=== PATIENT | male | born 1960 | race Caucasian/White ===

== ENCOUNTER → 2024-10-09 | Outpatient (CLI) | payer MEDICAID, SELFPAY ==
--- NOTE | 2024-10-09 11:00 | XR_ITS ---
Examination: CT chest with intravenous contrast CT abdomen with intravenous contrast CT pelvis with intravenous contrast 2-D coronal and sagittal reconstructions Time of exam: October 09, 2024 1057 hours Comparison May 23, 2024 INDICATIONS: Diagnosis bladder cancer one year ago, nonhealing surgical site drainage, neobladder surgery February 2024 CTDI: vol (mGy) : 20.9 DLP: (mGycm): 942 Technique: Multiple axial images of the chest, abdomen and pelvis with intravenous contrast, 3.0 mm slice thickness. Images obtained post intravenous injection Isovue 370 60 cc. 2-D sagittal and coronal reconstructions. Low dose protocols were performed. One or more of the following dose reduction techniques were used; automated exposure control, adjustment of the mA and/or KV according to patient size, use of iterative reconstruction technique. Findings: Localized calcified mild aneurysmal dilatation thoracic aorta distal descending arch region, axial image 90, sagittal image 109, transverse dimension 31 mm No dissection noted No mediastinal lymphadenopathy No pneumonia or pulmonary edema 4 mm soft pulmonary nodule right lower lobe image 345 Stable 13 mm anterior right lobe liver lesion Spleen not enlarged No extra hepatic biliary tract dilatation Pneumobilia No pancreatic or adrenal mass 3 mm left lateral periaortic lymph node No hydronephrosis Abdominal aorta normal size Postsurgical change in the anterior pelvic wall Neobladder with mildly irregular margins No pelvic abscess No anterior abdominal wall or pelvic wall abscess Prominent osteopenia with transpedicular lumbar fusion L3-L5 IMPRESSION: Localized calcified mild aneurysmal dilatation thoracic aorta 31 mm No mediastinal lymphadenopathy 4 mm pulmonary nodule right lower lobe, with this study as baseline suggest continued 6 month follow-up CT chest without contrast No extrahepatic biliary tract dilatation No pathologic abdominal or pelvic lymphadenopathy Postsurgical changes anterior pelvic wall Bladder demonstrates mildly irregular margins No abdominal or pelvic abscess
== END | disposition home or self-care (01) ==
LOC: CCTX 10:39
PROVIDERS: PCP Emergency Medicine; Referring Provider Urology; Visit Provider Urology
DX: N20.0 Calculus of kidney (principal); R91.8 Other nonspecific abnormal finding of lung field; N32.89 Other specified disorders of bladder; C67.9 Malignant neoplasm of bladder, unspecified
CPT/HCPCS: 71260; 74177; A4649; Q9967

== ENCOUNTER → 2024-12-12 | Outpatient (CLI) | payer MEDICAID, SELFPAY ==
--- NOTE | 2024-12-12 10:11 | XR_ITS ---
Examination: CT abdomen, without intravenous contrast. CT pelvis, without intravenous contrast. CT abdomen, with intravenous contrast. CT pelvis, with intravenous contrast. 2-D sagittal coronal reconstructions. Date and time of exam:December 12, [address] chest abdomen pelvis October 09, 2024 INDICATIONS: Bladder carcinoma diagnosis one year ago, nonhealing surgical drainage site, neobladder February 2024 CTDI: vol (mGy) 19.9 DLP: (mGycm) 1189 Technique: Multiple 3.0 axial images of the abdomen and pelvis without intravenous contrast, 3.0 mm slice thickness. Multiple 3.0 postcontrast images abdomen and pelvis also obtained, post intravenous injection 60 cc [id number] 2-D sagittal and coronal reconstructions. Low dose protocols were performed. One or more of the following dose reduction techniques were used; automated exposure control, adjustment of the mA and/or KV according to patient size, use of iterative reconstruction technique. Findings: 5 mm pulmonary nodule right lower lobe No focal liver or splenic lesions Contracted gallbladder with gallstones No pancreatic or adrenal mass Mild to moderate bilateral renal parenchymal scar formation, no hydronephrosis Abdominal aortic calcification no aneurysmal dilatation Thickening of the umbilical tract Normal appendix No bowel obstruction Neobladder with irregular margins, no bladder mass No abdominal or pelvic abscess IMPRESSION: Cholelithiasis Mild to moderate bilateral renal parenchymal scar formation, no hydronephrosis No abdominal or pelvic abscess
== END | disposition home or self-care (01) ==
LOC: CDIM 09:26
PROVIDERS: Referring Provider Urology; Visit Provider Urology
DX: K80.20 Calculus of gallbladder without cholecystitis without obstruction (principal); N28.89 Other specified disorders of kidney and ureter
CPT/HCPCS: 74178; A4649; Q9967